=== PATIENT | female | born 1970 | race Caucasian/White ===

== ENCOUNTER → 2016-11-12 | Outpatient (CLI) | payer BC ==
--- NOTE | 2016-11-13 09:18 | MM ---
Reason for exam: screening (asymptomatic). Last mammogram was performed 1 year and 1 month ago. History: Patient is postmenopausal. Family history of breast cancer in mother at age 64. Took hormonal contraceptives for 10 years. Physical Findings: A clinical breast exam by your physician is recommended on an annual basis and results should be correlated with mammographic findings. MG 3D Screening Mammo W/Cad Bilateral CC and MLO view(s) were taken. Prior study comparison: September 30, 2015, bilateral MG 3d screening mammo w/cad. August 20, 2014, bilateral MG screening mammo w CAD. There are scattered fibroglandular densities. Asymmetric breast tissue right upper outer quadrant, stable. There is no discrete abnormality. ASSESSMENT: Negative, BI-RAD 1 RECOMMENDATION: Routine screening mammogram of both breasts in 1 year.
== END ==
LOC: RADMAMWWP 08:35
PROVIDERS: ATTEND Internal Medicine
DX: Z12.31 Encounter for screening mammogram for malignant neoplasm of breast (principal)
CPT/HCPCS: 77063; G0202

== ENCOUNTER → 2017-11-13 | Outpatient (CLI) | payer BC ==
--- NOTE | 2017-11-14 09:28 | MM ---
Reason for exam: screening (asymptomatic). Last mammogram was performed 1 year ago. History: Patient is postmenopausal. Family history of breast cancer in mother at age 64. Took hormonal contraceptives for 10 years. Physical Findings: A clinical breast exam by your physician is recommended on an annual basis and results should be correlated with mammographic findings. MG 3D Screening Mammo W/Cad Bilateral CC and MLO view(s) were taken. Prior study comparison: November 12, 2016, bilateral MG 3d screening mammo w/cad. September 30, 2015, bilateral MG 3d screening mammo w/cad. The breast tissue is heterogeneously dense. This may lower the sensitivity of mammography. No significant changes when compared with prior studies. ASSESSMENT: Benign, BI-RAD 2 RECOMMENDATION: Routine screening mammogram of both breasts in 1 year.
== END | disposition home or self-care (01) ==
LOC: RADMAMWWP 07:57
PROVIDERS: ATTEND Internal Medicine
DX: Z12.31 Encounter for screening mammogram for malignant neoplasm of breast (principal)
CPT/HCPCS: 77063; 77067

== ENCOUNTER → 2018-12-08 | Outpatient (CLI) | payer BC ==
--- NOTE | 2018-12-08 10:08 | MM ---
Reason for exam: screening (asymptomatic). Last mammogram was performed 1 year and 1 month ago. History: Patient is postmenopausal. Family history of breast cancer in mother at age 64. Took hormonal contraceptives for 10 years. Physical Findings: A clinical breast exam by your physician is recommended on an annual basis and results should be correlated with mammographic findings. MG 3D Screening Mammo W/Cad Bilateral CC and MLO view(s) were taken. Prior study comparison: November 13, 2017, bilateral MG 3d screening mammo w/cad. November 12, 2016, bilateral MG 3d screening mammo w/cad. There are scattered fibroglandular densities. No significant changes when compared with prior studies. ASSESSMENT: Negative, BI-RAD 1 RECOMMENDATION: Routine screening mammogram of both breasts in 1 year.
== END | disposition home or self-care (01) ==
LOC: RADMAMWWP 07:16
PROVIDERS: ATTEND Internal Medicine
DX: Z12.31 Encounter for screening mammogram for malignant neoplasm of breast (principal)
CPT/HCPCS: 77063; 77067

== ENCOUNTER → 2019-08-12 | Outpatient (CLI) | payer BC ==
--- NOTE | 2019-08-12 09:12 | US ---
EXAMINATION TYPE: US abdomen complete DATE OF EXAM: 08/12/2019 COMPARISON: NONE CLINICAL HISTORY: R10.11 RUQ pain. Patient stated has general abdominal pain; relief with bowel movem ent EXAM MEASUREMENTS: Liver Length: 12.2 cm Gallbladder Wall: 0.1 cm CBD: 0.3 cm Spleen: 8.4 cm Right Kidney: 9.9 x 5.1 x 4.1 cm Left Kidney: 10.1 x 4.6 x 4.6 cm Pancreas: visualized portion wnl; tail obscured by overlying bowel gas Liver: wnl Gallbladder: wnl Evidence for sonographic Mora's sign: no CBD: wnl Spleen: wnl Right Kidney: No hydronephrosis or masses seen Left Kidney: No hydronephrosis or masses seen Upper IVC: wnl Abd Aorta: wnl The liver is homogenous. The intrahepatic portion of the IVC and proximal abdominal aorta are within normal limits. There is no evidence of cholelithiasis. Common bile duct is unremarkable. The visu alized portions of the pancreas are homogenous. The spleen is unremarkable. Kidneys are symmetric a nd free of hydronephrosis. No renal lesions are seen. IMPRESSION: Unremarkable abdominal ultrasound. No sonographic evidence of cholelithiasis nor acute ch olecystitis.
== END | disposition home or self-care (01) ==
LOC: RADUSWWP 08:22
PROVIDERS: ATTEND Internal Medicine
DX: R10.11 Right upper quadrant pain (principal)
CPT/HCPCS: 76700

== ENCOUNTER → 2020-02-05 | Outpatient (CLI) | payer BC ==
--- NOTE | 2020-02-09 08:26 | MM ---
Reason for exam: screening (asymptomatic). Last mammogram was performed 1 year and 2 months ago. History: Patient is postmenopausal. Family history of breast cancer in mother at age 64. Took hormonal contraceptives for 10 years beginning at age 25. Physical Findings: A clinical breast exam by your physician is recommended on an annual basis and results should be correlated with mammographic findings. MG 3D Screening Mammo W/Cad Bilateral CC and MLO view(s) were taken. Prior study comparison: December 08, 2018, bilateral MG 3d screening mammo w/cad. November 13, 2017, bilateral MG 3d screening mammo w/cad. There are scattered fibroglandular densities. There is no discrete abnormality. ASSESSMENT: Negative, BI-RAD 1 RECOMMENDATION: Routine screening mammogram of both breasts in 1 year.
== END | disposition home or self-care (01) ==
LOC: RADMAMWWP 13:05
PROVIDERS: ATTEND Internal Medicine
DX: Z12.31 Encounter for screening mammogram for malignant neoplasm of breast (principal)
CPT/HCPCS: 77063; 77067

== ENCOUNTER → 2021-03-17 | Outpatient (CLI) | payer BC ==
--- NOTE | 2021-03-21 08:47 | MM ---
Reason for exam: screening (asymptomatic). Last mammogram was performed 1 year and 1 month ago. History: Patient is postmenopausal. Family history of breast cancer in mother at age 64. Took hormonal contraceptives for 10 years beginning at age 25. Physical Findings: A clinical breast exam by your physician is recommended on an annual basis and results should be correlated with mammographic findings. MG 3D Screening Mammo W/Cad Bilateral CC and MLO view(s) were taken. Prior study comparison: February 05, 2020, bilateral MG 3d screening mammo w/cad. December 08, 2018, bilateral MG 3d screening mammo w/cad. There are scattered fibroglandular densities. ASSESSMENT: Negative, BI-RAD 1 RECOMMENDATION: Routine screening mammogram of both breasts in 1 year.
== END | disposition home or self-care (01) ==
LOC: RADMAMWWP 07:33
PROVIDERS: ATTEND Internal Medicine
DX: Z12.31 Encounter for screening mammogram for malignant neoplasm of breast (principal); Z78.0 Asymptomatic menopausal state; Z80.3 Family history of malignant neoplasm of breast
CPT/HCPCS: 77063; 77067

== ENCOUNTER → 2022-03-29 | Outpatient (CLI) | payer BC ==
--- NOTE | 2022-03-30 07:56 | MM ---
Reason for Exam: Screening (asymptomatic). Last screening mammogram was performed 12 month(s) ago. Patient History: Menarche at age 9. First Full-Term at age 25. Postmenopausal. Hormonal Contraceptives for 10 years from age 25 until age 34. Mother had breast cancer, age 64. Risk Values: Jennifer 5 year model risk: 2.5%. NCI Lifetime model risk: 17.2%. Prior Study Comparison: 12/08/2018 Bilateral Screening Mammogram, [facility]. 02/05/2020 Bilateral Screening Mammogram, [facility]. 03/17/2021 Bilateral Screening Mammogram, [facility]. Tissue Density: The breast tissue is heterogeneously dense. This may lower the sensitivity of mammography. Findings: Analyzed By CAD. Retroareolar nodular density on the right is new. No additional nodules seen. A few scattered benign-appearing calcifications are noted. Overall Assessment: Incomplete: need additional imaging evaluation, BI-RAD 0 Management: Diagnostic Breast Ultrasound of the right breast. A clinical breast exam by your physician is recommended on an annual basis and results should be correlated with mammographic findings. Electronically signed and approved by: Jeremiah Martinez M.D. Radiologis
== END | disposition home or self-care (01) ==
LOC: RADMAMWWP 07:22
PROVIDERS: ATTEND Internal Medicine
DX: Z12.31 Encounter for screening mammogram for malignant neoplasm of breast (principal); Z78.0 Asymptomatic menopausal state; Z80.3 Family history of malignant neoplasm of breast
CPT/HCPCS: 77063; 77067

== ENCOUNTER → 2022-04-13 | Outpatient (CLI) | payer BC ==
--- NOTE | 2022-04-13 07:42 | USB ---
Patient History: Menarche at age 9. First Full-Term at age 25. Postmenopausal. Hormonal Contraceptives for 10 years from age 25 until age 34. Mother had breast cancer, age 64. Risk Values: Jennifer 5 year model risk: 2.5%. NCI Lifetime model risk: 17.2%. Prior Study Comparison: 02/05/2020 Bilateral Screening Mammogram, [facility]. 03/17/2021 Bilateral Screening Mammogram, [facility]. 03/29/2022 Bilateral MG 3D screening mammo w/cad, [facility]. Findings: The periareolar of the right breast, the axilla of the right breast and the retroareolar of the right breast were scanned. Targeted ultrasound shows a bilobed thin-walled simple appearing cyst measuring 5 x 4 x 5 mm with possible thin septa within 1 cm of nipple likely corresponding to the mammogram abnormality. Overall Assessment: Probably benign, BI-RAD 3 Management: Diagnostic Breast Ultrasound of the right breast in 6 months. Precautionary follow-up diagnostic ultrasound in 6 months time. Patient told of findings and recommendation at time of dictation. Electronically signed and approved by: Harry Byrnes M.D.
== END | disposition home or self-care (01) ==
LOC: RADUSWWP 07:12
PROVIDERS: ATTEND Internal Medicine
DX: R92.8 Other abnormal and inconclusive findings on diagnostic imaging of breast (principal); Z78.0 Asymptomatic menopausal state; Z80.3 Family history of malignant neoplasm of breast

== ENCOUNTER → 2023-05-07 | Outpatient (CLI) | payer BC ==
--- NOTE | 2023-05-09 07:34 | MM ---
Reason for Exam: Screening (asymptomatic). Last mammogram was performed 1 year(s) and 1 month(s) ago. Patient History: Menarche at age 9. First Full-Term at age 25. Postmenopausal. Hormonal Contraceptives for 10 years from age 25 until age 34. Mother had breast cancer, age 64. Risk Values: Jennifer 5 year model risk: 2.5%. NCI Lifetime model risk: 16.9%. Prior Study Comparison: 03/17/2021 Bilateral Screening Mammogram, [facility]. 03/29/2022 Bilateral MG 3D screening mammo w/cad, [facility]. 11/02/2022 Right MG 3D diag mammo w/cad RT, [facility]. Tissue Density: There are scattered fibroglandular densities. Findings: Analyzed By CAD. Lateral asymmetry on the right is unchanged. There is no suspicious group of microcalcifications or new suspicious mass in either breast. Overall Assessment: Benign, BI-RAD 2 Management: Screening Mammogram of both breasts in 1 year. . Patient should continue monthly self-breast exams. A clinical breast exam by your physician is recommended on an annual basis. This exam should not preclude additional follow-up of suspicious palpable abnormalities. Note on Jennifer scores and lifetime risk: 1. A Jennifer score greater than 3% is considered moderate risk. If this is the case, consider specialist referral to assess eligibility for a risk reducing agent. 2. If overall lifetime risk for the development of breast cancer is 20% or higher, the patient may qualify for future screening with alternating mammogram and breast MRI. Electronically signed and approved by: Kenyon Gallardo M.D. Radiologist
== END | disposition home or self-care (01) ==
LOC: RADMAMWWP 07:20
PROVIDERS: ATTEND Internal Medicine
DX: Z12.31 Encounter for screening mammogram for malignant neoplasm of breast (principal); Z78.0 Asymptomatic menopausal state; Z80.3 Family history of malignant neoplasm of breast
CPT/HCPCS: 77063; 77067

== ENCOUNTER → 2024-05-08 | Outpatient (CLI) | payer BC ==
--- NOTE | 2024-05-12 12:11 | MM ---
Reason for Exam: Screening (asymptomatic). Last screening mammogram was performed 12 month(s) ago. Patient History: Menarche at age 9. First Full-Term at age 25. Postmenopausal. Hormonal Contraceptives for 10 years from age 25 until age 34. Mother had breast cancer, age 64. Risk Values: Jennifer 5 year model risk: 2.7%. NCI Lifetime model risk: 16.6%. Prior Study Comparison: 03/29/2022 Bilateral MG 3D screening mammo w/cad, [facility]. 11/02/2022 Right MG 3D diag mammo w/cad RT, [facility]. 05/07/2023 Bilateral MG 3D screening mammo w/cad, [facility]. Tissue Density: There are scattered areas of fibroglandular density. Findings: Analyzed By CAD. Right breast: There is no suspicious group of microcalcifications or new suspicious mass. Left breast: There is no suspicious group of microcalcifications or new suspicious mass. Overall Assessment: Negative, BI-RAD 1 Management: Screening Mammogram of both breasts in [address] [facility] will attempt to contact patient to return for supplemental views and ultrasound if indicated. Patient should continue monthly self-breast exams. A clinical breast exam by your physician is recommended on an annual basis. This exam should not preclude additional follow-up of suspicious palpable abnormalities. Note on Jennifer scores and lifetime risk: 1. A Jennifer score greater than 3% is considered moderate risk. If this is the case, consider specialist referral to assess eligibility for a risk reducing agent. 2. If overall lifetime risk for the development of breast cancer is 20% or higher, the patient may qualify for future screening with alternating mammogram and breast MRI. Electronically signed and approved by: Zhao Zarate DO
== END | disposition home or self-care (01) ==
LOC: RADMAMWWP 07:48
PROVIDERS: ATTEND Internal Medicine
DX: Z12.31 Encounter for screening mammogram for malignant neoplasm of breast
CPT/HCPCS: 77063; 77067

== ENCOUNTER → 2024-05-22 | Outpatient (CLI) | payer BC ==
--- NOTE | 2024-05-22 12:50 | XR ---
EXAMINATION TYPE: XR chest 2V DATE OF EXAM: 05/22/2024 COMPARISON: NONE HISTORY: Chest pain TECHNIQUE: Frontal and lateral views of the chest are obtained. FINDINGS: There is no focal air space opacity. No evidence for pneumothorax. No pleural effusion. The cardiac silhouette size is within normal limits. The osseous structures are grossly intact. IMPRESSION: 1. No acute cardiopulmonary process.
== END | disposition home or self-care (01) ==
LOC: RADXRMAIN 12:02
PROVIDERS: ATTEND Internal Medicine
DX: R05.9 Cough, unspecified (principal)
CPT/HCPCS: 71046